=== PATIENT | male | born 1935 | race Caucasian/White ===

== ENCOUNTER 2020-07-28 03:07 | Emergency (ER) | payer MEDICARE, OTHER, SELFPAY ==
[2020-07-28 03:10] VITALS: BP 155/84; PULSE 129; RESP 16; TEMP 36.2; O2SAT 94
--- NOTE | 2020-07-28 03:50 | ED.GENADULT ---
HPI - General Adult General Chief complaint: Weakness Stated complaint: weakness, hematuria Time Seen by Provider: 07/28/20 03:18 History of Present Illness HPI narrative: Patient is a 84-year-old gentleman who presents to the emergency department with chief complaint of hematuria. The patient has history of prostate CA and has had problems with [place] catheter placement before in the past patient sees Dr. Alberto with urology and this evening the family noticed that he started having blood in his urine and they report it is dark blood they report that he is currently not on any anticoagulants he does take aspirin as an antiplatelet therapy patient does have history of a prior stroke of which he has weakness from. Patient denies chest pain denies shortness of breath denies trauma Related Data Home Medications Medication Instructions Recorded Confirmed acetaminophen [Tylenol Arthritis mg PO 07/28/20 Pain] bicalutamide mg 07/28/20 docusate sodium [Stool Softener] PO 07/28/20 donepezil mg 07/28/20 ferrous sulfate mg 07/28/20 losartan 07/28/20 memantine mg 07/28/20 metoprolol tartrate 07/28/20 tamsulosin mg PO 07/28/20 Allergies Allergy/AdvReac Type Severity Reaction Status Date / Time No Known Allergies Allergy Verified 07/28/20 03:27 Review of Systems Review of Systems: Narrative: A 10 system review of systems was completed on the patient and is negative except for what is stated in the HPI. Nursing and ancillary documentation was reviewed. PMFSH Comments History of prostate CA CVA Social history the patient lives with his Exam Narrative: Exam Narrative: GENERAL: Well-appearing, well-nourished, and in no acute distress. HEAD: Normocephalic, atraumatic. EYES: PERRLA and EOMI. ENT: Nares clear, no rhinorrhea or epistaxis. Mucous membranes moist. NECK: Supple. CHEST: Clear to auscultation. No respiratory distress. HEART: Regular rate and rhythm. No murmur heard. Normal peripheral pulses. ABDOMEN: Soft, nontender, nondistended, normal active bowel sounds. EXTREMITIES: Normal range of motion. No edema. SKIN: Warm, dry, no rash. NEURO: No focal deficits. Alert and oriented x3. PSYCH: Normal mood and affect. Course Course Emergency Course: A three-way catheter was placed in the patient and the patient's bladder was irrigated until the urine cleared. Vital Signs Vital signs: Vital Signs Temperature 36.2 C L 07/28/20 03:10 Pulse Rate 129 H 07/28/20 03:10 Respiratory Rate 16 07/28/20 03:10 Blood Pressure 155/84 H 07/28/20 03:10 Pulse Oximetry 94 07/28/20 03:10 Temperature 36.2 C L 07/28/20 03:10 Pulse Rate 129 H 07/28/20 03:10 Respiratory Rate 16 07/28/20 03:10 Blood Pressure 155/84 H 07/28/20 03:10 Pulse Oximetry 94 07/28/20 03:10 Medical Decision Making Vital Signs Vital Signs: Vital Signs Temperature 36.2 C L 07/28/20 03:10 Pulse Rate 129 H 07/28/20 03:10 Respiratory Rate 16 07/28/20 03:10 Blood Pressure 155/84 H 07/28/20 03:10 Pulse Oximetry 94 07/28/20 03:10 Temperature 36.2 C L 07/28/20 03:10 Pulse Rate 129 H 07/28/20 03:10 Respiratory Rate 16 07/28/20 03:10 Blood Pressure 155/84 H 07/28/20 03:10 Pulse Oximetry 94 07/28/20 03:10 Lab Data Result diagrams: 07/28/20 03:58 07/28/20 04:22 Labs: Lab Results 07/28/20 07/28/20 07/28/20 Range/Units 03:58 04:22 04:22 WBC 11.3 H (4.5-10.0) K/mm3 RBC 3.29 L (4.6-6.20) M/mm3 Hgb 10.7 L (14.0-18.0) g/dL Hct 32.9 L (42.0-52.0) % MCV 100.0 (80-100) fl MCH 32.5 (26-34) pg MCHC 32.5 (32-36) g/dl RDW 12.4 (11.5-14.5) % Plt Count 207 (150-375) k/mm3 MPV 11.5 H (7.4-10.4) fl Immature Gran % (Auto) 0.4 (0-0.5) % Neut % (Auto) 68.4 (45.5-73.1) % Lymph % (Auto) 12.2 L (18.3-44.2) % [place] % (Auto) 15.4 H (2.6-8.5) % Eos % (Auto) 2.7 (0-4.4) % Baso % (Auto) 0.9 (
[2020-07-28] MEDS: LIDOCAINE HCL 2% GEL UROJET 10 ML PKG (04:05)
[2020-07-28 04:06] LABS: Basophils Absolute Auto 0.1 K/mm3 (0.0-0.1); Basophils Percent Auto 0.9 % (0.2-1.2); Eosinophils Absolute Auto 0.3 K/mm3 (0-0.3); Eosinophils Percent Auto 2.7 % (0-4.4); Hematocrit 32.9 % (42.0-52.0); Hemoglobin 10.7 g/dL (14.0-18.0); Immature Granulocyte Absolute 0.05 K/mm3 (0.00-0.031); Immature Granulocyte Percent A 0.4 % (0-0.5); Lymphocytes Absolute Auto 1.38 K/mm3 (0.9-3.2); Lymphocytes Percent Auto 12.2 % (18.3-44.2); Mean Corpuscular HGB Conc 32.5 g/dl (32-36); Mean Corpuscular Hemoglobin 32.5 pg (26-34); Mean Platelet Volume 11.5 fl (7.4-10.4); Monocytes Absolute Auto 1.7 K/mm3 (0.1-0.6); Monocytes Percent Auto 15.4 % (2.6-8.5); Neutrophils Absolute Auto 7.7 K/mm3 (1.3-6.7); Neutrophils Percent Auto 68.4 % (45.5-73.1); Platelet Count Result 207 k/mm3 (150-375); Red Blood Count 3.29 M/mm3 (4.6-6.20); Red Cell Distribution Width 12.4 % (11.5-14.5); White Blood Count 11.3 K/mm3 (4.5-10.0)
[2020-07-28 04:38] LABS: INR 0.9; Prothrombin Time 13.1 Seconds (11.1-14.7)
[2020-07-28 04:39] LABS: Partial Thromboplastin Time 35.2 SECONDS (22.3-36.8)
[2020-07-28 04:41] LABS: Alanine Aminotransferase 9 U/L (4-50); Albumin Level 3.9 g/dL (3.5-5.1); Alkaline Phosphatase 43 U/L (38-126); Anion Gap 6 mmol/L (8-16); Aspartate Amino Transferase 20 U/L (17-59); Bilirubin,Total 0.7 mg/dL (0.2-1.3); Blood Urea Nitrogen 19 mg/dL (9-20); Calcium 9.1 mg/dL (8.4-10.2); Carbon Dioxide 26 mmol/L (22-30); Chloride 106 mmol/L (98-107); Estimated CRCL calculation 37 ml/min; Estimated Glomerular Filt Rate > 60; Glucose 96 mg/dL (75-110); Potassium 3.7 mmol/L (3.4-5.0); Sodium 138 mmol/L (137-145)
[2020-07-28 06:07] LABS: Add Urine Microscopic? YES; Appearance Urine Cloudy (Clear); Bilirubin Urine Negative (Negative); Blood Urine 3+ (Negative); Glucose Urine UA Negative (Negative); Ketones Urine Negative (Negative); Leukocyte Esterase Ur 1+ LEU/UL (Negative); Nitrate Urine Negative (Negative); Protein Urine 2+ mg/dL (Negative); RBC Urine >75 /hpf (0-2); Specific Grav Ur 1.011 (1.001-1.035); Urobilinogen Urine Negative mg/dL (<2.0); WBC Urine >75 /hpf
[2020-07-28 06:09] LABS: Color Urine Amber (Yellow)
--- NOTE | 2020-07-28 06:47 | PC.NURSE ---
Patient had his CBI discontinued, switched to a leg bag and patient's instructed on use. Patient still has 3 [address] Patient had another BM and was cleaned up and changed.
[2020-07-28 06:48] VITALS: BP 176/74; PULSE 62; RESP 14; O2SAT 98
== END 2020-07-28 07:51 | disposition home or self-care (01) ==
PROVIDERS: Emergency Provider Emergency Medicine; PCP Urology
DX: N39.0 Urinary tract infection, site not specified (principal); R31.0 Gross hematuria; Z85.46 Personal history of malignant neoplasm of prostate; Z79.82 Long term (current) use of aspirin; Z86.73 Personal history of transient ischemic attack (TIA), and cerebral infarction without residual deficits
CPT/HCPCS: 36415; 51700; 80053; 81001; 85025; 85610; 85730; 87077; 87086; 87088; 96365; 99284; J0696